=== PATIENT | female | born 1975 | race Hispanic/Latino ===

== ENCOUNTER → 2017-01-31 | Outpatient (CLI) | payer OTHER ==
--- NOTE | 2017-02-02 13:20 | RAD ---
EXAM DESCRIPTION: Hand,Right 3 Views CLINICAL HISTORY: 41 years,Female,PAIN IN RIGHT HAND COMPARISON: None FINDINGS: The right hand demonstrates no evidence of fractures or acute abnormalities. Soft tissues appear unremarkable. IMPRESSION: Unremarkable hand Electronically signed by: Eriberto Rice MD 02/02/2017 1:21 PM CDT
== END | disposition home or self-care (01) ==
LOC: RAD 08:15
PROVIDERS: ATTEND Orthopaedic Surgery
DX: M79.641 Pain in right hand (principal)